=== PATIENT | male | born 1955 | race Asian ===

== ENCOUNTER 2025-06-19 10:29 | Emergency (ER) | payer MEDICARE, MEDICAID ==
[~2025-06-19] VITALS: Ht 167.6 cm; Wt 67.0 kg
[2025-06-19 10:48] VITALS: TEMP 97.7
[2025-06-19 11:01] LABS: GLUCOMETER DEV NAME(LOC) ER.7; GLUCOSE,POINT OF CARE 165 MG/DL (70-110)
[2025-06-19] MEDS: IBUPROFEN 600 MG TABLET PO ONE (12:38)
[2025-06-19] MEDS ORDERED: IBUP-1492 PO (14:43)
[2025-06-19] MEDS ORDERED: METH-659 PO (14:43)
[2025-06-19 14:50] VITALS: BP 151/86; PULSE 64; RESP 18; O2SAT 96
== END 2025-06-19 15:28 | disposition home or self-care (01) ==
LOC: EMS 10:36
DX: M79.601 Pain in right arm (principal); M79.602 Pain in left arm; M25.511 Pain in right shoulder; M25.512 Pain in left shoulder; E11.9 Type 2 diabetes mellitus without complications; E78.00 Pure hypercholesterolemia, unspecified; I10 Essential (primary) hypertension; I25.10 Atherosclerotic heart disease of native coronary artery without angina pectoris; Z87.891 Personal history of nicotine dependence; Z95.5 Presence of coronary angioplasty implant and graft
CPT/HCPCS: 82962; 99283